=== PATIENT | female | born 1955 | race Caucasian/White ===

== ENCOUNTER → 2016-12-25 | Outpatient (CLI) | payer OTHER ==
[~2016-12-25] VITALS: Ht 167.6 cm; Wt 104.3 kg
[~2016-12-25] MED LIST: IOHEXOL 300 MG/ML 75 ML VIAL IV ONE; LISI1TAB5 PO; SODIUM BICARBONATE VIAL 150 MEQ in IV STERILE WATER 1,000 ML IV PRN
[2016-12-25 07:17] VITALS: BP 145/95
--- NOTE | 2016-12-25 10:28 | RAD ---
Indication follow-up pulmonary nodules. Contrast imaging through the chest was performed. Comparison is made to an examination 02/03/2013. Imaging through the upper abdomen shows no acute finding. Known right adrenal mass is unchanged the thoracic aorta appears unremarkable. Moderate coronary artery calcification is noted. There is no significant hilar or mediastinal adenopathy. Known nodule at the right lung base (image 44 series 2) is unchanged in size compatible with a benign granuloma. There is, however, a new nodule in the right middle lobe measuring approximately 3 mm, image 31. A 2 mm nodule is additionally suggested peripherally in the right middle lobe image 43. Follow-up along the lines of the Fleischner criteria should be considered. An acute finding in the chest is not apparent. IMPRESSION: Unchanged nodule in the right lower lobe. New small nodules in the right middle lobe. Follow-up imaging along the lines of the Fleischner criteria should be considered. Stable right adrenal mass compatible with an adenoma Nodules detected incidentally at non-screening CT Nodule size (mm) less than or equal to 4 Low Risk patients- no follow-up needed High Risk patients- follow-up at 12 months and if no change, no further imaging needed. Nodule size > 4-6 mm Low risk patients- follow- up at 12 months and if no change, no further imaging needed High risk patients- initial follow-up CT at 6-12 months and then at 18-24 months if no change. Nodule Size > 6-8 mm Low risk patients- initial follow-up CT at 6-12 months and then at 18-24 months if no change. High risk patients- initial follow- up CT at 3-6 months and then at 9-12 months if no change, Nodule Size >8 mm Either low or high risk patients: Follow-up CT at around 3, 9 and 24 [address], PET, and/or biopsy Note: newly detected indeterminate nodule in person 35 years of age or older. Low risk patients- minimal or absent history of smoking and/or other known risk factors. High risk patients- history of smoking or of other known risk factors. PQRS Compliance Statement: One or more of the following individualized dose reduction techniques were utilized for this examination: 1. Automated exposure control 2. Adjustment of the mA and/or kV according to patient size 3. Use of iterative reconstruction technique
== END | disposition home or self-care (01) ==
LOC: CT 06:53
PROVIDERS: ATTEND Family Medicine
DX: R91.1 Solitary pulmonary nodule (principal); Z87.891 Personal history of nicotine dependence
CPT/HCPCS: 71260; Q9967

== ENCOUNTER 2019-02-07 00:09 | Emergency (ER) | payer SELFPAY ==
[~2019-02-07] VITALS: Ht 167.6 cm; Wt 99.8 kg
[~2019-02-07 00:09] MED LIST changes: -IOHEXOL 300 MG/ML 75 ML VIAL IV ONE; -SODIUM BICARBONATE VIAL 150 MEQ in IV STERILE WATER 1,000 ML IV PRN
[2019-02-07 00:13] VITALS: BP 140/83
--- NOTE | 2019-02-07 00:34 | PHYS DOC ---
Past Medical History Past Medical History: Hypertension (PALOMA HIGUERA APRN) Past Surgical History: Tubal ligation, Other Additional Past Surgical Histo: Hemorrhoidectomy, colonoscopies. (PALOMA HIGUERA APRN) Smoking: Quit Greater Than 1 Year Alcohol Use: None Drug Use: None (PALOMA HIGUERA APRN) Adult General Chief Complaint Chief Complaint: HAND PROBLEM HPI HPI Patient is a 63 year old female who presents with left hand and wrist pain has been ongoing for 2-3 months. Patient got worse on Sunday with increased pain. Her pain is 10 out of 10 in severity. The patient states it is sharp and throbbing. Denies any trauma. The patient had Advil at 3:00 today. Also Tylenol at 9:30 PM today. This has helped some. (PALOMA HIGUERA APRN) Review of Systems Review of Systems Constitutional: Denies fever or chills [] Eyes: Denies change in visual acuity, redness, or eye pain [] HENT: Denies nasal congestion or sore throat [] Respiratory: Denies cough or shortness of breath [] Cardiovascular: No additional information not addressed in HPI [] GI: Denies abdominal pain, nausea, vomiting, bloody stools or diarrhea [] : Denies dysuria or hematuria [] Musculoskeletal: Denies back pain or joint pain with exception of L wrist. Integument: Denies rash or skin lesions [] Neurologic: Denies headache, focal weakness or sensory changes [] Endocrine: Denies polyuria or polydipsia [] Complete systems were reviewed and found to be within normal limits, except as documented in this note. (PALOMA HIGUERA APRN) Current Medications Current Medications Current Medications Medications (Trade) Dose Ordered Sig/Godwin Start Time Stop Time Status Last Admin Dose Admin Ibuprofen (Motrin) 400 mg STK-MED ONCE 02/07/19 00:38 02/07/19 00:39 DC (PALOMA GIBSON DO) Allergies Allergies Allergies Coded Allergies Type Severity Reaction Last Updated Verified No Known Drug Allergies 01/21/14 No (PALOMA GIBSON DO) Physical Exam Physical Exam Constitutional: Well developed, well nourished, no acute distress, non-toxic appearance. [] HENT: Normocephalic, atraumatic, bilateral external ears normal, oropharynx moist, no oral exudates, nose normal. [] Eyes: PERRLA, EOMI, conjunctiva normal, no discharge. [] Neck: Normal range of motion, no tenderness, supple, no stridor. [] Cardiovascular:Heart rate regular rhythm, no murmur [] Lungs & Thorax: Bilateral breath sounds clear to auscultation [] Abdomen: Bowel sounds normal, soft, no tenderness, no masses, no pulsatile masses. [] Skin: Warm, dry, no erythema, no rash. [] Back: No tenderness, no CVA tenderness. [] Extremities: Tenderness to L wrist, no cyanosis, no clubbing, ROM intact, no edema. + Eichhoff and + Kris Test. Neurologic: Alert and oriented X 3, normal motor function, normal sensory function, no focal deficits noted. [] Psychologic: Affect normal, judgement normal, mood normal. [] (PALOMA HIGUERA APRN) EKG EKG [] (PALOMA HIGUERA APRN) Radiology/Procedures Radiology/Procedures [] (PALOMA HIGUERA APRN) Course & Med Decision Making Course & Med Decision Making Pertinent Labs and Imaging studies reviewed. (See chart for details) Will give Ibuprofen and place in wrist splint. (PALOMA HIGUERA APRN) Dragon Disclaimer Dragon Disclaimer This electronic medical record was generated, in whole or in part, using a voice recognition dictation system. (PALOMA HIGUERA APRN) Departure Departure Impression: Primary Impression: De Quervain's disease (tenosynovitis) Disposition: 01 HOME, SELF-CARE Condition: STABLE Referrals: MARIA T ADEN MD (PCP) Patient Instructions: De Quervain's Disease Additional Instructions: Thank you for visiting . We appreciate you trusting us with your care. If any additional problems come up don't hesitate to return to visit us. Please follow up with your primary care provider so they can plan additional care if needed and know about the problem that you had. If symptoms worsen come back to the Emergency Department. Any concerning symptoms that start such as chest pain, shortness of Air, weakness or numbness on one side of the body, running high fevers or any other concerning symptoms return to the ER. Please wear splint and continue to use Advil and Tylenol for pain. Try to rest your wrist. Attending Signature Attending Signature I have reviewed the PA/FUEL CELL ENGINEER's note and plan of care. I was available for consultation as needed during the patient's visit in the emergency department. I agree with the clinical impression, plan, and disposition. (PALOMA GIBSON DO) PALOMA HIGUERA APRN Feb 07, 2019 00:34 PALOMA GIBSON DO Feb 07, 2019 03:55
[2019-02-07] MEDS ORDERED: IBUPROFEN 400 MG TABLET. PO ONE ×2 (00:38→00:45)
== END 2019-02-07 00:45 | disposition home or self-care (01) ==
LOC: ER 00:09
DX: M65.4 Radial styloid tenosynovitis [de Quervain] (principal); I10 Essential (primary) hypertension; Z98.51 Tubal ligation status; Z87.891 Personal history of nicotine dependence
CPT/HCPCS: 29125; 29515; 99282; 99283

== ENCOUNTER 2019-08-10 20:33 | Emergency (ER) | payer SELFPAY ==
[~2019-08-10] VITALS: Ht 167.6 cm; Wt 104.3 kg
[~2019-08-10 20:33] MED LIST changes: +LISI1TAB19 PO; -LISI1TAB5 PO
[2019-08-10] MEDS ORDERED: LIDOCAINE 2%/EPI 1:100,000 20 ML VIAL. IJ ONE (21:00)
[2019-08-10] MEDS ORDERED: NEOMY/BACITR/POLYMYXIN OINT PACKET. TP ONE (21:00)
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
[2019-08-10 21:22] VITALS: BP 147/68
== END 2019-08-10 21:50 | disposition home or self-care (01) ==
LOC: ER 20:33
DX: S01.01XA Laceration without foreign body of scalp, initial encounter (principal); I10 Essential (primary) hypertension; Z98.51 Tubal ligation status; Z98.890 Other specified postprocedural states; Y08.89XA Assault by other specified means, initial encounter; Y93.89 Activity, other specified; Y92.89 Other specified places as the place of occurrence of the external cause; Y99.8 Other external cause status
CPT/HCPCS: 12002; 99283; J3490

== ENCOUNTER 2019-08-21 18:35 | Emergency (ER) | payer SELFPAY ==
[~2019-08-21] VITALS: Ht 167.6 cm; Wt 95.3 kg
[2019-08-21 18:57] VITALS: BP 149/72
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
== END 2019-08-21 19:18 | disposition home or self-care (01) ==
LOC: ER 18:35
DX: S01.01XD Laceration without foreign body of scalp, subsequent encounter (principal); E78.00 Pure hypercholesterolemia, unspecified; I10 Essential (primary) hypertension; X58.XXXD Exposure to other specified factors, subsequent encounter
CPT/HCPCS: 99281

== ENCOUNTER 2019-11-03 10:52 | Emergency (ER) | payer SELFPAY ==
[~2019-11-03] VITALS: Ht 167.6 cm; Wt 88.0 kg
[2019-11-03 12:00] LABS: BASO # 0.1 x10^3/uL (0.0-0.2); BASO % 1 % (0-3); EOS % 0 % (0-3); HEMATOCRIT 34.6 % (36.0-47.0); HEMOGLOBIN 11.7 g/dL (12.0-15.5); LYMPH % 16 % (24-48); MEAN CORPUSCULAR HEMOGLOBIN 28 pg (25-35); MEAN CORPUSCULAR HGB CONC 34 g/dL (31-37); MEAN CORPUSCULAR VOLUME 83 fL (79-100); MONO # 0.5 x10^3/uL (0.0-1.1); MONO % 7 % (0-9); NEUT # 4.7 x10^3/uL (1.8-7.7); NEUT % 75 % (31-73); PLATELET COUNT 161 x10^3/uL (140-400); RED BLOOD COUNT 4.16 x10^6/uL (3.50-5.40); RED CELL DISTRIBUTION WIDTH 15.2 % (11.5-14.5); WHITE BLOOD COUNT 6.3 x10^3/uL (4.0-11.0)
--- NOTE | 2019-11-03 12:12 | RAD ---
CHEST PA LATERAL History: Cough.. Comparison: None. FINDINGS: The cardiomediastinal silhouette is not enlarged. No evidence of pneumothorax. No evidence of pleural effusion. No evidence of infiltrate. Bones appear intact. IMPRESSION: No evidence of consolidating infiltrate. Electronically signed by: Wander Weir MD (11/03/2019 12:09 PM) [id number]
--- NOTE | 2019-11-03 12:46 | RAD ---
Bilateral lower extremity venous duplex study 11/03/2019 11:31 AM Clinical History: Increasing bilateral lower extremity edema Technique: Using a combination of real time ultrasound imaging and color-flow and pulse Doppler imaging techniques along with graded compression and augmentation, duplex evaluation of the deep venous system of the both lower extremities was performed. Multiple images were obtained. Findings: There is no sonographic evidence of deep venous thrombosis involving the visualized deep venous structures of either lower extremity. Impression: No evidence of deep venous thrombosis involving either lower extremity Electronically signed by: Antonio Jang MD (11/03/2019 12:43 PM) [id number]
[2019-11-03 13:18] LABS: CALCIUM 8.7 mg/dL (8.5-10.1); CREATININE 1.2 mg/dL (0.6-1.0); GFR 45.4; POTASSIUM 4.4 mmol/L (3.5-5.1)
[2019-11-03 13:23] LABS: ALBUMIN 3.5 g/dL (3.4-5.0); ALBUMIN/GLOBULIN RATIO 1.2 (1.0-1.7); MAGNESIUM 1.8 mg/dL (1.8-2.4); TOTAL BILIRUBIN 0.3 mg/dL (0.2-1.0); TOTAL PROTEIN 6.5 g/dL (6.4-8.2)
[2019-11-03 14:07] VITALS: BP 113/58
--- NOTE | 2019-11-03 14:19 | PHYS DOC ---
Past Medical History Past Medical History: High Cholesterol, Hypertension, Other Additional Past Medical Histor: Pre-Diabetic, Neuropathy Past Surgical History: Tubal ligation, Other Additional Past Surgical Histo: Hemorrhoidectomy, colonoscopies. Smoking Status: Former Smoker Alcohol Use: None Drug Use: None Adult General Chief Complaint Chief Complaint: LOWER EXTREMITY SWELLING HPI HPI 63-year-old female presents with report of bilateral lower extremity edema which is been ongoing for the past 2 weeks. Reports has been worse over the last few days. Denies history of edema. Denies history of DVT or PE. Denies any chest pain or shortness of air. Denies fever or chills. Denies redness. Patient does report she is currently homeless and has been sleeping in her car with her legs down. Patient reports she feels like the left leg is worse. Review of Systems Review of Systems Constitutional: Denies fever or chills Eyes: Denies redness or eye pain HENT: Denies nasal congestion or sore throat Respiratory: Denies cough or shortness of breath Cardiovascular: Denies chest pain or palpitations GI: Denies abdominal pain, nausea, or vomiting : Denies dysuria or hematuria Musculoskeletal: Denies back pain or joint pain Integument: Reports bilateral lower extremity edema and tenderness Neurologic: Denies headache, focal weakness or sensory changes Complete systems were reviewed and found to be within normal limits, except as documented in this note. Allergies Allergies Allergies Coded Allergies Type Severity Reaction Last Updated Verified No Known Drug Allergies 01/21/14 No Physical Exam Physical Exam Constitutional: Well developed, well nourished, no acute distress, non-toxic appearance HENT: Normocephalic, atraumatic, oropharynx moist Eyes: Conjunctiva normal, no discharge Neck: Normal range of motion, no tenderness, supple Cardiovascular: Heart rate normal, regular rhythm Lungs & Thorax: Bilateral breath sounds clear to auscultation, no wheezing Abdomen: Soft, no tenderness Skin: Warm, dry, no erythema, no rash Back: No tenderness, no CVA tenderness Extremities: Bilateral lower extremity calf tenderness, ROM intact, 1+ edema nonpitting bilaterally Neurologic: Alert and oriented X 3, no focal deficits noted Psychologic: Affect normal, judgment normal Current Patient Data Vital Signs Vital Signs Date Time Temp Pulse Resp B/P (MAP) Pulse Ox O2 Delivery O2 Flow Rate FiO2 11/03/19 14:07 70 113/58 (76) 98 Room Air 11/03/19 11:15 98.3 18 98.3 Lab Values Laboratory Tests Test 11/03/19 11:45 11/03/19 12:45 White Blood Count 6.3 x10^3/uL (4.0-11.0) Red Blood Count 4.16 x10^6/uL (3.50-5.40) Hemoglobin 11.7 g/dL (12.0-15.5) L Hematocrit 34.6 % (36.0-47.0) L Mean Corpuscular Volume 83 fL (79-100) Mean Corpuscular Hemoglobin 28 pg (25-35) Mean Corpuscular Hemoglobin Concent 34 g/dL (31-37) Red Cell Distribution Width 15.2 % (11.5-14.5) H Platelet Count 161 x10^3/uL (140-400) Neutrophils (%) (Auto) 75 % (31-73) H Lymphocytes (%) (Auto) 16 % (24-48) L Monocytes (%) (Auto) 7 % (0-9) Eosinophils (%) (Auto) 0 % (0-3) Basophils (%) (Auto) 1 % (0-3) Neutrophils # (Auto) 4.7 x10^3/uL (1.8-7.7) Lymphocytes # (Auto) 1.0 x10^3/uL (1.0-4.8) Monocytes # (Auto) 0.5 x10^3/uL (0.0-1.1) Eosinophils # (Auto) 0.0 x10^3/uL (0.0-0.7) Basophils # (Auto) 0.1 x10^3/uL (0.0-0.2) Sodium Level 136 mmol/L (136-145) Potassium Level 4.4 mmol/L (3.5-5.1) Chloride Level 100 mmol/L (98-107) Carbon Dioxide Level 28 mmol/L (21-32) Anion Gap 8 (6-14) Blood Urea Nitrogen 17 mg/dL (7-20) Creatinine 1.2 mg/dL (0.6-1.0) H Estimated GFR (Cockcroft-Gault) 45.4 BUN/Creatinine Ratio 14 (6-20) Glucose Level 228 mg/dL (70-99) H Calcium Level 8.7 mg/dL (8.5-10.1) Magnesium Level 1.8 mg/dL (1.8-2.4) Total Bilirubin 0.3 mg/dL (0.2-1.0) Aspartate Amino Transferase (AST) 21 U/L (15-37) Alanine Aminotransferase (ALT) 27 U/L (14-59) Alkaline Phosphatase 68 U/L (46-116) Creatine Kinase 125 U/L (26-192) Creatine Kinase MB (Mass) 2.8 ng/mL (0.0-3.6) Creatine Kinase MB Relative Index 2.2 % (0-4) Troponin I Quantitative < 0.017 ng/mL (0.000-0.055) MU-Pbp-S-Type Natriuretic Peptide 86 pg/mL (0-124) Total Protein 6.5 g/dL (6.4-8.2) Albumin 3.5 g/dL (3.4-5.0) Albumin/Globulin Ratio 1.2 (1.0-1.7) Laboratory Tests 11/03/19 11:45 Laboratory Tests 11/03/19 12:45 EKG EKG @1142 NSR at 78bpm, NO ST elevation, nonspecific t wave inversion III Radiology/Procedures Radiology/Procedures PROCEDURE: VENOUS LOWER EXT BILATERAL Bilateral lower extremity venous duplex study 11/03/2019 11:31 AM Clinical History: Increasing bilateral lower extremity edema Technique: Using a combination of real time ultrasound imaging and color-flow and pulse Doppler imaging techniques along with graded compression and augmentation, duplex evaluation of the deep venous system of the both lower extremities was performed. Multiple images were obtained. Findings: There is no sonographic evidence of deep venous thrombosis involving the visualized deep venous structures of either lower extremity. Impression: No evidence of deep venous thrombosis involving either lower extremity Electronically signed by: Antonio Jang MD (11/03/2019 12:43 PM) [id number] PROCEDURE: CHEST PA & LATERAL CHEST PA LATERAL History: Cough.. Comparison: None. FINDINGS: The cardiomediastinal silhouette is not enlarged. No evidence of pneumothorax. No evidence of pleural effusion. No evidence of infiltrate. Bones appear intact. IMPRESSION: No evidence of consolidating infiltrate. Electronically signed by: Wander Weir MD (11/03/2019 12:09 PM) [id number] Course & Med Decision Making Course & Med Decision Making Pertinent Labs and Imaging studies reviewed. (See chart for details) Patient presents with report of bilateral lower extremity edema which is been ongoing for the past few days. Patient does report some fullness and tenderness to calves. No signs of erythema. Afebrile. Labs obtained and posted to chart. Chest x-ray without signs of vascular congestion. BNP normal. Troponin within n ormal limits. Venous Doppler negative for acute DVT. Symptoms more likely secondary to peripheral edema from patient sleeping in the car. Advised to purchase [id number] compression stockings. Patient stable for discharge with outpatient follow-up with PCP. Discussed findings and plan with patient, who acknowledges understanding and agreement. Dragon Disclaimer Dragon Disclaimer This electronic medical record was generated, in whole or in part, using a voice recognition dictation system. Departure Departure Impression: Primary Impression: Peripheral edema Disposition: 01 HOME, SELF-CARE Condition: STABLE Referrals: AMBER OSBORN JR, MD (PCP) Patient Instructions: Peripheral Edema WANDER GIBSON DO Nov 03, 2019 14:19
--- NOTE | 2019-11-03 18:21 | EKG ---
[facility] [address] [place] [address] Test Date: 2019-11-03 Test Time: 11:42:35 Pat Name: TAL MACE Department: Room: Gender: F Fire Control Officer: : 1955 Requested By: PALOMA GIBSON Order Number: [id number] Reading MD: Measurements Intervals Mom[place] Rate: 78 P: 45 MO: 174 QRS: 43 QRSD: 76 T: 43 QT: 374 QTc: 430 Interpretive Statements SINUS RHYTHM QRS(T) CONTOUR ABNORMALITY CONSIDER ANTEROLATERAL MYOCARDIAL DAMAGE POSSIBLY ABNORMAL ECG RI6.01 No previous ECG available for comparison
== END 2019-11-03 14:26 | disposition home or self-care (01) ==
LOC: ER 10:52
DX: M79.89 Other specified soft tissue disorders (principal); R60.9 Edema, unspecified; E78.00 Pure hypercholesterolemia, unspecified; I10 Essential (primary) hypertension; Z87.891 Personal history of nicotine dependence; Z98.51 Tubal ligation status; Z98.890 Other specified postprocedural states
CPT/HCPCS: 36415; 71046; 80053; 82553; 83735; 83880; 84484; 85025; 93005; 93970; 99285